=== PATIENT | male | born 1975 | race Caucasian/White ===

== ENCOUNTER 2017-05-21 06:00 | Day surgery (SDC) | payer OTHER ==
[2017-05-21] VITALS (14 sets, daily range): BP systolic 143–171; BP diastolic 66–91; PULSE 46–65; RESP 17–18; Ht 154.9 cm; Wt 91.0 kg
[~2017-05-21] VITALS: Ht 154.9 cm; Wt 91.0 kg
[~2017-05-21 06:00] MED LIST: CEFAZOLIN 2 GM/50 ML (PMX) 50 ML IVPB ONE; SOD CHLORIDE 0.9% 1,000 ML IV SCH
[2017-05-21] MEDS ORDERED: SEVOFLURANE 15 MIN ONE (07:00)
[2017-05-21] MEDS ORDERED: CEFAZOLIN 1 GM INJ ONE (07:00)
[2017-05-21] MEDS ORDERED: BUPIVACAINE 0.25% (MPF) 30 ML INJ ONE (07:59)
[2017-05-21] MEDS ORDERED: MIDAZOLAM 1 MG/ML 2 ML INJ ONE (08:09)
[2017-05-21] MEDS ORDERED: HYDROCODONE/APAP (5/325) TAB PO ONE (09:00)
[2017-05-21] MEDS ORDERED: ROCURONIUM 50 MG INJ ONE (09:04)
[2017-05-21] MEDS ORDERED: GLYCOPYRROLATE 0.4 MG INJ ONE (09:04)
[2017-05-21] MEDS ORDERED: PROPOFOL 20 ML ONE (09:04)
[2017-05-21] MEDS ORDERED: LIDOCAINE 2% (SDV) 5 ML INJ ONE (09:04)
[2017-05-21] MEDS ORDERED: NEOSTIGMINE 3 MG/3 ML SYRINGE ONE (09:04)
[2017-05-21] MEDS ORDERED: ONDANSETRON 4 MG INJ ONE (09:05)
--- NOTE | 2017-05-21 09:06 | OPR ---
Date/Time of Note Date/Time of Note DATE: 05/21/17 TIME: 09:00 Operative Report Procedure Date: May 21, 2017 Preoperative Diagnosis symptomatic gallstones/ gallbladder sludge Postoperative Diagnosis same Operation Performed 1. laparoscopic cholecystectomy 2. therapeutic injection of subcutaneous marcaine Surgeon: Yodit GALLEGO Specimens gallbladder Indications This is a 41-year-old male with symptomatic gallstones and gallbladder sludge. He requires surgical excision of his gallbladder. Risks alternatives benefits and percent were discussed the patient. Patient expresses understanding consents to the operation. Procedure Description Patient is taken to the OR and prepped and draped in usual sterile fashion. Surgical timeout is performed. IV antibiotics are given. Infraumbilical transverse incision is made with a 15 blade. Dissection cautery was carried down to the fascia. The fascia is grasped with Hartford's and divided with curved Martinez scissors. 0 Vicryl U stitch is placed into the fascia. Balloon Curtis trocar is introduced. Pneumoperitoneum is established. Mid epigastric 12 mm optical trocar right upper quadrant right upper flank 5 mm optical trochars were placed under direct visualization. Upon initial inspection there are some adhesions to the gallbladder which were taken down bluntly. The fundus was grasped and retraction was in the lateral position. The cystic duct was identified the critical view was established. Lateral dissection was first initiated. The cystic duct was divided using 3 clips proximal 1 clip distal. 35 mm echelon vascular stapler was used to divide cystic duct as it had thickened tissues. The cystic artery was divided with 3 clips proximally clipped distal. Gallbladder was taken off the gallbladder bed. There is good hemostasis. Gallbladder was retrieved using an Endo Catch bag. The ports removed under direct visualization. 0 Vicryl U stitch was tied down. Skin was closed using skin rudy. Therapeutic subcutaneous injection of Marcaine was placed in all incision sites. Dry dressings were applied. Yodit GALLEGO May 21, 2017 09:06
[2017-05-21] MEDS ORDERED: MEPERIDINE 25 MG INJ IV PRN (09:30)
[2017-05-21] MEDS ORDERED: morphine (1 MG/ML) 10ML SYRINGE IV PRN (09:30)
[2017-05-21] MEDS ORDERED: ONDANSETRON 4 MG INJ IV PRN (09:30)
[2017-05-21] MEDS ORDERED: DIPHENHYDRAMINE 50 MG INJ IV PRN (09:30)
[2017-05-21] MEDS: FENTAnyl 50 MCG/ML VIAL IV PRN ×2 (09:43→09:53)
== END 2017-05-21 10:52 | disposition home or self-care (01) ==
LOC: SDS 06:00
PROVIDERS: ATTEND Surgery
DX: K80.10 Calculus of gallbladder with chronic cholecystitis without obstruction (principal); E66.01 Morbid (severe) obesity due to excess calories; Z68.37 Body mass index [BMI] 37.0-37.9, adult
CPT/HCPCS: 47562; 88304; J0690; J2250; J2405; J2710; J3010; Z7512; Z7610